=== PATIENT | male | born 1985 | race Caucasian/White ===

== ENCOUNTER 2016-08-24 09:49 | Emergency (ER) | payer OTHER ==
[~2016-08-24] VITALS: Ht 177.8 cm; Wt 91.0 kg
[~2016-08-24 09:49] MED LIST: BACT800T5 PO; CEPH500C3 PO; CEPH500T PO
[2016-08-24 09:55] VITALS: BP 159/95; PULSE 88; RESP 22; TEMP 98.2; O2SAT 99
[2016-08-24] MEDS ORDERED: predniSONE 50 MG TAB PO ONE (10:15)
[2016-08-24] MEDS ORDERED: LIDOCAINE VISCOUS 2% SOLN 15 ML UDC PO ONE (11:00)
[2016-08-24 11:07] VITALS: BP 142/79; PULSE 71; RESP 18; O2SAT 98
--- NOTE | 2016-08-24 11:20 | RADHPO ---
EXAM DATE/TIME: 08/24/2016 10:38 [place] COMPARISON: None. INDICATIONS : Short of breath after exposure to a mixture of pool chemicals. MEDICAL HISTORY : None. SURGICAL HISTORY : None. ENCOUNTER: Initial ACUITY: 1 day PAIN SCORE: 0/10 LOCATION: Bilateral chest FINDINGS: PA and lateral views of the chest demonstrate the lungs to be symmetrically aerated without evidence of mass, infiltrate or effusion. The cardiomediastinal contours are unremarkable. Osseous structure s are intact. CONCLUSION: No acute cardiopulmonary process. Jc Lomax MD Board Certified Radiologist. This report was verified electronically.
--- NOTE | 2016-08-24 12:00 | PD ---
HPI Chief Complaint: Exposure to Blood/Body Fluids Time Seen by Provider: 09:56 Travel History International Travel<30 days: No Contact w/Intl Traveler<30days: No Traveled to known affect area: No History of Present Illness HPI Patient is a 31-year-old male who comes in after he says he was exposed to a mixture of chlorine in muriatic acid. He says he walked into a room at work that had the pool pump that seemed to be malfunctioning. He said the room was full of gas. He says he immediately covered his mouth and nose and he walked out. He says he feels like his throat is burning and his voice is hoarse. He denies any shortness of breath. He is able to drink water without drooling or having to spit it back out. He denies any other symptoms. [facility] Past Medical History Medical History: Denies Significant Hx Diminished Hearing: No Hypertension: Yes Migraines: Yes Tetanus Vaccination: < 5 Years Influenza Vaccination: No Past Surgical History Surgical History: No Previous Surgery Social History Alcohol Use: No Tobacco Use: No Substance Use: No Allergies-Medications (Allergen,Severity, Reaction): Coded Allergies: No Known Allergies (Verified , 08/24/16) Reported Meds & Prescriptions Reported Meds & Active Scripts Active Review of Systems Except as stated in HPI: all other systems reviewed are Neg General / Constitutional: No: Fever, Chills HENT: Positive: Sore Throat, No: Headaches, Lightheadedness Cardiovascular: No: Chest Pain or Discomfort Respiratory: No: Shortness of Breath Gastrointestinal: No: Nausea, Vomiting Genitourinary: No: Dysuria Skin: No Rash, No Lesions Neurologic: No: Weakness, Dizziness Physical Exam Narrative GENERAL: Awake and alert in no acute distress. SKIN: Warm and dry. No blistering of the skin. HEAD: Atraumatic. Normocephalic. EYES: Pupils equal and round. No scleral icterus. ENT: Mucous membranes pink and moist. No pharyngeal edema. Tonsils without erythema or exudates. No blistering of the throat. NECK: Trachea midline. No JVD. CARDIOVASCULAR: Regular rate and rhythm. No murmur appreciated. RESPIRATORY: No accessory muscle use. Clear to auscultation. Breath sounds equal bilaterally. MUSCULOSKELETAL: No obvious deformities. No clubbing. No cyanosis. No edema. NEUROLOGICAL: Awake and alert. No obvious cranial nerve deficits. Motor grossly within normal limits. Normal speech. PSYCHIATRIC: Appropriate mood and affect; insight and judgment normal. Data Data Last Documented VS Vital Signs Date Time Temp Pulse Resp B/P Pulse Ox O2 Delivery O2 Flow Rate FiO2 08/24/16 11:07 71 18 142/79 98 Room Air 08/24/16 09:55 98.2 Orders Chest, Pa & Lat (08/24/16 ) Prednisone (Deltasone) (08/24/16 10:15) Lidocaine 2% Viscous (Xylocaine 2% Visco (08/24/16 11:00) MDM Medical Decision Making Medical Screen Exam Complete: Yes Emergency Medical Condition: Yes Differential Diagnosis Chemical exposure versus chemical burn versus anxiety Narrative Course Patient is a 31-year-old male comes in after an exposure to chlorine. Exam shows no acute abnormalities. Airways patent, there is no signs of airway burn. Patient given prednisone for symptoms of swelling. Given viscous lidocaine. Chest x-ray performed shows no acute abnormalities. Patient observed in the emergency department with no extension of his symptoms, no airway issues. Patient advised it is unlikely he'll develop any further symptoms as he is no longer being exposed to the gas. Advised follow-up with his doctor. Advised to return to the ED as needed for any worsening symptoms. Diagnosis Primary Impression: Chemical exposure Patient Instructions: Chemical Skin Burn (ED), General Instructions Additional Instructions: It is unlikely that you will develop any further issues as you are no longer being exposed to the chemical. If you start feeling short of breath or problems with your throat, return to the ED immediately. Otherwise, follow up with your primary doctor. Scripts No Active Prescriptions or Reported Meds Disposition: 01 DISCHARGE HOME Condition: Stable Maura Saldaña MD Aug 24, 2016 12:00
== END 2016-08-24 12:11 | disposition home or self-care (01) ==
LOC: PHED 09:49
DX: T59.4X1A Toxic effect of chlorine gas, accidental (unintentional), initial encounter (principal); Z77.098 Contact with and (suspected) exposure to other hazardous, chiefly nonmedicinal, chemicals; T54.2X1A Toxic effect of corrosive acids and acid-like substances, accidental (unintentional), initial encounter; R20.8 Other disturbances of skin sensation; X58.XXXA Exposure to other specified factors, initial encounter; Y99.0 Civilian activity done for income or pay
CPT/HCPCS: 71020; 99283; J7512